=== PATIENT | male | born 1985 | race Caucasian/White ===

== ENCOUNTER → 2018-03-25 | Outpatient (CLI) | payer BC ==
[~2018-03-25] MED LIST: PERCOCET 325 MG1 TA2 PO
== END ==
LOC: COL.RAD 12:43
DX: M25.512 Pain in left shoulder (principal)

== ENCOUNTER → 2020-04-30 | Outpatient (CLI) | payer BC | LOC: COL.RAD 07:40 | DX: M25.512 Pain in left shoulder (principal) ==